=== PATIENT | male | born 1975 | race African-American/Black ===

== ENCOUNTER 2024-12-22 11:19 | Emergency (ER) | payer BC ==
[~2024-12-22] VITALS: Ht 170.2 cm; Wt 99.0 kg
[2024-12-22 11:52] LABS: BASO # 0.0 10^3/uL (0.0-0.2); BASO % 0.7 % (0.0-1.0); EOS # 0.1 10^3/uL (0.0-0.5); EOS % 1.2 % (0.0-3.0); LYMPH # 2.0 10^3/uL (1.5-5.0); LYMPH % 47.3 % (24.0-44.0); MONO # 0.3 10^3/uL (0.0-0.8); MONO % 6.1 % (2.0-8.0); NEUTROPHILS # 1.9 10^3/uL (1.5-8.5); NEUTROPHILS % 44.7 % (36.0-66.0); PLATELET COUNT, AUTOMATED 232 10^3/uL (150-450)
[2024-12-22 12:22] LABS: CK-MB VALUE MASS 2.7 NG/ML (<3.6)
[2024-12-22 12:24] LABS: CALCIUM LEVEL 9.3 MG/DL (8.5-10.1); CARBON DIOXIDE LEVEL 27.0 MMOL/L (20-31); CHLORIDE LEVEL 103.0 MMOL/L (98-107); CREATININE FOR GFR 1.04 MG/DL (0.70-1.30); GLOMERULAR FILTRATION RATE 86.9 (>56); POTASSIUM SERUM 4.9 MMOL/L (3.5-5.1); SODIUM LEVEL 140.0 MMOL/L (136-145)
[2024-12-22 12:42] LABS: ALT/SGPT 71.0 U/L (7.0-40); AST/SGOT 41.0 U/L (<34)
[2024-12-22 12:45] LABS: CPK CREATINE PHOSPHOKINASE 1988.0 U/L (46-171); MB/CK RELATIVE INDEX 0.13 (< OR =4)
[2024-12-22 13:10] LABS: CK-MB VALUE MASS 2.1 NG/ML (<3.6)
[2024-12-22] MEDS: NS (Normal Saline) 0.9% 1,000 ML IV ONE (13:20)
[2024-12-22] MEDS ORDERED: ISOVUE-370 76% 100 ML VIAL As Ordered ONE (13:26)
[2024-12-22 13:41] LABS: CPK CREATINE PHOSPHOKINASE 1941.0 U/L (46-171); MB/CK RELATIVE INDEX 0.1 (< OR =4)
[2024-12-22 15:23] VITALS: BP 130/81; TEMP 97.6; O2SAT 99
== END 2024-12-22 15:37 | disposition left against medical advice (07) ==
LOC: EDBD 11:19 → M ED 11:19
DX: R07.9 Chest pain, unspecified (principal); Z53.9 Procedure and treatment not carried out, unspecified reason